=== PATIENT | female | born 1955 | race Caucasian/White ===

== ENCOUNTER 2018-12-24 14:26 | Emergency (ER) | payer OTHER ==
[~2018-12-24] VITALS: Ht 157.5 cm; Wt 65.8 kg
[2018-12-24] MEDS ORDERED: ELAVIL (14:41)
== END 2018-12-24 20:20 | disposition home or self-care (01) ==
LOC: ER 14:26
DX: J45.998 Other asthma (principal)

== ENCOUNTER 2018-12-26 12:20 | Emergency (ER) | payer OTHER ==
[~2018-12-26] VITALS: Ht 157.5 cm; Wt 65.8 kg
[~2018-12-26 12:20] MED LIST: ELAVIL
== END 2018-12-26 14:14 | disposition home or self-care (01) ==
LOC: ER 12:20
DX: J06.9 Acute upper respiratory infection, unspecified (principal)

== ENCOUNTER → 2019-06-16 | Outpatient (CLI) | payer OTHER | END | disposition home or self-care (01) | LOC: SONOGRAMA 08:14 → MAMO-SONO 08:15 | DX: R10.84 Generalized abdominal pain (principal) ==

== ENCOUNTER 2019-07-21 10:24 | Outpatient (CLI) | payer OTHER | END 2019-07-21 10:37 | disposition home or self-care (01) | LOC: SONOGRAMA 10:24 | DX: R10.2 Pelvic and perineal pain (principal) ==

== ENCOUNTER 2019-11-15 10:13 | Outpatient (CLI) | payer OTHER | END 2019-11-15 11:58 | disposition home or self-care (01) | LOC: RAD 10:13 | PROVIDERS: ATTEND Specialist | DX: R10.84 Generalized abdominal pain (principal); I27.0 Primary pulmonary hypertension ==

== ENCOUNTER → 2020-02-09 | Emergency (ER) | payer OTHER ==
[~2020-02-09] VITALS: Ht 149.9 cm; Wt 61.2 kg
== END | disposition left against medical advice (07) ==
LOC: ER 19:27
DX: Z53.20 Procedure and treatment not carried out because of patient's decision for unspecified reasons (principal)

== ENCOUNTER 2020-02-25 13:10 | Emergency (ER) | payer OTHER ==
[~2020-02-25] VITALS: Ht 157.5 cm; Wt 68.9 kg
[2020-02-25] MEDS ORDERED: ZESTRIL5 MG (13:34)
== END 2020-02-25 17:37 | disposition home or self-care (01) ==
LOC: ER 13:10
DX: R06.02 Shortness of breath (principal); F41.8 Other specified anxiety disorders; Z03.818 Encounter for observation for suspected exposure to other biological agents ruled out

== ENCOUNTER 2020-05-05 12:04 | Emergency (ER) | payer OTHER ==
[~2020-05-05] VITALS: Ht 157.5 cm; Wt 66.2 kg
[~2020-05-05 12:04] MED LIST changes: +ZESTRIL5 MG
[2020-05-05] MEDS ORDERED: NORVASC5 MG PO (12:32)
== END 2020-05-05 16:23 ==
LOC: ER 12:04
DX: R50.9 Fever, unspecified (principal); R23.2 Flushing

== ENCOUNTER 2021-04-20 08:00 | Outpatient (CLI) | payer OTHER ==
[~2021-04-20 08:00] MED LIST changes: +NORVASC5 MG PO
== END 2021-04-20 08:30 | disposition home or self-care (01) ==
LOC: PPH VACUNA 08:00
PROVIDERS: ATTEND Emergency Medicine Pediatric Emergency Medicine
DX: Z23 Encounter for immunization (principal)

== ENCOUNTER 2021-04-22 14:22 | Emergency (ER) | payer OTHER ==
[~2021-04-22] VITALS: Ht 157.5 cm; Wt 66.2 kg
[2021-04-22] MEDS ORDERED: ZESTRIL5 MG (14:29)
[2021-04-22] MEDS ORDERED: KETO10TA2 PO (16:01)
[2021-04-22] MEDS ORDERED: CLEOCIN HCL300 MG PO (16:01)
== END 2021-04-22 18:12 | disposition home or self-care (01) ==
LOC: ER 14:22
DX: H92.02 Otalgia, left ear (principal)

== ENCOUNTER 2021-07-29 12:48 | Emergency (ER) | payer OTHER ==
[~2021-07-29] VITALS: Ht 157.5 cm; Wt 65.8 kg
[~2021-07-29 12:48] MED LIST changes: +CLEOCIN HCL300 MG PO; +KETO10TA2 PO
== END 2021-07-29 19:21 | disposition home or self-care (01) ==
LOC: ER 12:48
DX: K62.89 Other specified diseases of anus and rectum (principal); K76.89 Other specified diseases of liver; N20.0 Calculus of kidney

== ENCOUNTER 2021-10-21 11:48 | Outpatient (CLI) | payer OTHER | END 2021-10-21 11:58 | disposition home or self-care (01) | LOC: PPH VACUNA 11:48 | PROVIDERS: ATTEND Emergency Medicine Pediatric Emergency Medicine | DX: Z23 Encounter for immunization (principal) ==

== ENCOUNTER 2022-04-19 16:27 | Emergency (ER) | payer OTHER ==
[~2022-04-19] VITALS: Ht 157.5 cm; Wt 63.5 kg
== END 2022-04-19 21:41 | disposition home or self-care (01) ==
LOC: ER 16:27
DX: I11.0 Hypertensive heart disease with heart failure (principal)

== ENCOUNTER 2022-04-21 11:47 | Outpatient (CLI) | payer OTHER | END 2022-04-21 12:03 | disposition home or self-care (01) | LOC: SONOGRAMA 11:47 | PROVIDERS: ATTEND Internal Medicine Gastroenterology | DX: R07.9 Chest pain, unspecified (principal); I10 Essential (primary) hypertension; R10.84 Generalized abdominal pain ==

== ENCOUNTER 2022-05-26 09:03 | Emergency (ER) | payer OTHER ==
[~2022-05-26] VITALS: Ht 157.5 cm; Wt 66.2 kg
== END 2022-05-26 13:02 | disposition home or self-care (01) ==
LOC: ER 09:03
DX: R42 Dizziness and giddiness (principal); I10 Essential (primary) hypertension; Z88.0 Allergy status to penicillin

== ENCOUNTER 2022-05-26 10:45 | Outpatient (CLI) | payer OTHER | END 2022-05-26 11:00 | disposition home or self-care (01) | LOC: MRI 10:45 | DX: R42 Dizziness and giddiness (principal) | CPT/HCPCS: 70553 ==

== ENCOUNTER 2022-05-28 08:05 | Outpatient (CLI) | payer OTHER | END 2022-05-28 08:10 | disposition home or self-care (01) | LOC: NUCLEAR 08:05 | DX: R42 Dizziness and giddiness (principal); Z88.0 Allergy status to penicillin ==

== ENCOUNTER 2022-08-05 11:43 | Outpatient (CLI) | payer OTHER | END 2022-08-05 11:48 | disposition home or self-care (01) | LOC: RAD 11:43 | DX: Z01.811 Encounter for preprocedural respiratory examination (principal) ==

== ENCOUNTER 2023-02-05 11:20 | Emergency (ER) | payer OTHER ==
[~2023-02-05] VITALS: Ht 157.5 cm; Wt 54.4 kg
[2023-02-05 13:37] LABS: CALCIUM 9.4 mg/dL (8.5-10.1); CREATININE SERUM 0.75 mg/dL (0.55-1.02); GFR 77.55; POTASSIUM 4.1 mEq/L (3.5-5.1)
[2023-02-05 13:56] LABS: HEMATOCRIT 41.6 % (36.0-45.00); HEMOGLOBIN 14.3 g/dL (12.0-15.00); MEAN CELL VOLUME 85.1 fL (80.00-100.00); MEAN CORPUSCULAR HEMOGLOBIN 29.3 pg (27.00-32.0); MEAN CORPUSCULAR HGB CONC 34.4 g/dl (32.0-36.0); PLATELET COUNT 185 K/uL (150-450); RED CELL DISTRIBUTION WIDTH 13.1 % (11.5-14.5)
== END 2023-02-05 15:49 | disposition home or self-care (01) ==
LOC: ER 11:20
PROVIDERS: General Practice
DX: K64.8 Other hemorrhoids (principal); Z88.0 Allergy status to penicillin

== ENCOUNTER 2024-01-17 11:12 | Outpatient (CLI) | payer OTHER | END 2024-01-17 11:24 | disposition home or self-care (01) | LOC: MRI 11:12 | PROVIDERS: ATTEND Physical Medicine & Rehabilitation | DX: M54.2 Cervicalgia (principal); M54.12 Radiculopathy, cervical region | CPT/HCPCS: 72141 ==

== ENCOUNTER 2024-02-28 11:05 | Outpatient (CLI) | payer OTHER | END 2024-02-28 11:09 | disposition home or self-care (01) | LOC: MRI 11:05 | PROVIDERS: ATTEND Physical Medicine & Rehabilitation | DX: M54.50 Low back pain, unspecified (principal) | CPT/HCPCS: 72148 ==

== ENCOUNTER 2024-08-03 11:16 | Outpatient (CLI) | payer OTHER | END 2024-08-03 11:20 | disposition home or self-care (01) | LOC: RAD 11:16 | DX: N20.0 Calculus of kidney (principal); M54.50 Low back pain, unspecified ==

== ENCOUNTER 2025-01-03 17:52 | Emergency (ER) | payer OTHER ==
[~2025-01-03] VITALS: Ht 154.9 cm; Wt 56.7 kg
[~2025-01-03 17:52] MED LIST changes: +ARTHRITIS PAIN150 G1 TOP
[2025-01-03 18:06] VITALS: BP 130/82; O2SAT 100
== END 2025-01-03 20:22 | disposition home or self-care (01) ==
LOC: ER 17:58
DX: M54.16 Radiculopathy, lumbar region (principal); R53.1 Weakness; I10 Essential (primary) hypertension; Z88.0 Allergy status to penicillin